=== PATIENT | female | born 1960 | race Caucasian/White ===

== ENCOUNTER 2018-02-11 14:11 | Emergency (ER) | payer SELFPAY ==
[~2018-02-11] VITALS: Ht 170.2 cm; Wt 59.0 kg
[2018-02-11 14:55] VITALS: BP 129/70
== END 2018-02-11 16:39 | disposition home or self-care (01) ==
LOC: ER 14:11
DX: S00.03XA Contusion of scalp, initial encounter (principal); S09.90XA Unspecified injury of head, initial encounter; W22.8XXA Striking against or struck by other objects, initial encounter; Y93.89 Activity, other specified; Y99.8 Other external cause status; Y92.89 Other specified places as the place of occurrence of the external cause
CPT/HCPCS: 70450